=== PATIENT | female | born 1930 | race Caucasian/White ===

== ENCOUNTER 2016-10-04 05:07 | Inpatient (IN) | payer MEDICARE, BC ==
[~2016-10-04 05:07] MED LIST: ADULT LOW DOSE81 MG PO; ANTIVERT25 MG PO; BABY ASPIRIN81 MG; CALCIUM; CALCIUM 600 MG1 EACH PO; CALCIUM600 MG PO; CLARITIN10 MG; DIOVAN320 MG PO; ENABLEX7.5 MG; EQL FISH OIL 1,1 CAP PO; FISH OIL 1,0001 CA1; GLIPIZIDE XL2.5 MG PO; GUAIFENESIN200 MG; MULTIVITAMIN1 CAP; MULTIVITAMIN1 TAB PO; NIACIN400 MG PO; NIACIN500 MG; NIACOR500 MG PO; OMEPRAZOLE20 MG PO; PERFOROMIS20 MCG/2 M; PERFOROMIS20 MCG/2 M INH; PREVALITE POWD231 GM PO; PRILOSEC20 MG; TENEX2 MG PO; VESICARE5 MG PO; ZOCOR20 MG; ZOCOR20 MG PO; ZOFRAN4 MG PO; [UNRECOGNIZED DRUG - REMARK]
[2016-10-04 06:05] LABS: BASO % 0.1 % (0-2); EOS % 0.4 % (0-7); EOSINOPHIL ABSOLUTE COUNT 0.1 tho/cmm (0.0-0.7); HCT-HEMATOCRIT 42.6 % (34.0-49.0); HGB-HEMOGLOBIN 14.1 gm/dl (12.0-15.5); IMMATURE GRANULOCYTES ABSOLUTE 0.04 tho/cmm (0-0.03); IMMATURE GRANULOCYTES PERCENT 0.3 % (0-0.3); LYMPH % 4.7 % (20-45); LYMPH ABSOLUTE COUNT 0.6 tho/cmm (0.8-4.5); MCH (MEAN CORPUSCULAR HGB) 29.9 pg (28.0-32.0); MCHC MEAN CORPUSCULAR HGB CONC 33.1 % (32.0-36.0); MCV (MEAN CELL VOLUME) 90.4 fl (82.0-96.0); MEAN PLATELET VOLUME 9.9 cmc (9.4-12.4); MONO % 5.3 % (0-12); MONOCYTE ABSOLUTE COUNT 0.7 tho/cmm (0.0-1.2); NEUTROPHILS % 89.2 % (40-80); PLATELET COUNT 244 tho/cmm (150-450); RED BLOOD COUNT 4.71 mil/cmm (4.00-5.20); RED CELL DISTRIBUTION WIDTH 13.6 % (12.4-16.4); WHITE BLOOD COUNT 13.5 tho/cmm (4.0-10.0)
[2016-10-04 06:15] LABS: PROTHROMBIN TIME 11.4 SECONDS (9.0-13.6)
[2016-10-04 06:21] LABS: ALB/GLOB RATIO 1.1 (0.8-2.0); ALBUMIN 3.7 g/dl (3.5-5.0); ALKALINE PHOSPHATASE 86 U/L (33-138); ALT/SGPT 28 U/L (12-78); ANION GAP 14 mmol/L (0-20); AST/SGOT 20 U/L (10-40); BILIRUBIN,TOTAL 0.9 mg/dl (0-1.5); BLOOD UREA NITROGEN 18 mg/dl (6-24); CALCIUM 9.2 mg/dl (8.5-10.5); CARBON DIOXIDE-VENOUS 25 mmol/L (22-32); CHLORIDE 105 mmol/l (96-110); CREATININE 0.99 mg/dl (0.50-1.10); GLUCOSE 134 mg/dL (70-110); LIPASE 103 U/L (73-393); MAGNESIUM 1.9 mg/dl (1.8-2.6); SODIUM 140 mmol/L (135-145); eGFR VALUE FOR BLACK 60 mL/Min
[2016-10-04 06:26] LABS: TSH-THYROID STIMULATING HORM. 1.26 uIU/ml (0.40-3.80)
[2016-10-04 06:29] LABS: URINE BILIRUBIN NEGATIVE (NEG); URINE BLOOD MODERATE (NEG); URINE GLUCOSE (UA) NEGATIVE (NEG); URINE KETONE NEGATIVE (NEG); URINE LEUKOCYTE ESTERASE POSITIVE (NEG); URINE NITRITE POSITIVE (NEG); URINE PROTEIN SMALL (NEG)
[2016-10-04 06:38] LABS: URINE APPEARANCE HAZY; URINE COLOR YELLOW
[2016-10-04 06:41] LABS: URINE WBC 0-3 /[HPF] (0-5)
[2016-10-04 06:42] LABS: URINE BACTERIA 4+
[2016-10-04 07:56] LABS: URINE BILIRUBIN NEGATIVE (NEG); URINE BLOOD MODERATE (NEG); URINE GLUCOSE (UA) NEGATIVE (NEG); URINE KETONE NEGATIVE (NEG); URINE LEUKOCYTE ESTERASE POSITIVE (NEG); URINE NITRITE POSITIVE (NEG); URINE PROTEIN NEGATIVE (NEG); URINE SPECIFIC GRAVITY 1.015 (1.003-1.030)
[2016-10-04 08:08] LABS: URINE APPEARANCE HAZY; URINE COLOR YELLOW
[2016-10-04 08:22] LABS: URINE BACTERIA 4+
[2016-10-04] MEDS ORDERED: SINGULAIR10 M1 PO (08:27)
[2016-10-04] MEDS ORDERED: FLONASE ALLERG9.9 ML (08:27)
[2016-10-04] MEDS ORDERED: DEMADEX10 M1 PO (08:43)
[2016-10-04] MEDS ORDERED: OMEPRAZOLE20 M3 PO (08:44)
[2016-10-04] MEDS ORDERED: BYSTOLIC5 M1 PO (08:44)
[2016-10-04] MEDS ORDERED: ZOCOR20 M1 PO (08:44)
[2016-10-04] MEDS ORDERED: GLUCOTROL XL2.5 M1 PO (08:44)
[2016-10-04] MEDS ORDERED: VESICARE5 M1 PO (08:44)
[2016-10-04] MEDS ORDERED: AVAPRO300 M1 PO (08:45)
[2016-10-04] MEDS ORDERED: ASPIRIN EC81 MG PO (08:45)
[2016-10-04] MEDS ORDERED: CALCIUM CARBON600 M2 PO (08:45)
[2016-10-04] MEDS ORDERED: CENTRUM COMPLE1 EAC1 PO (08:45)
[2016-10-04] MEDS ORDERED: PERFOROMIS20 MCG/21 INH (08:46)
[2016-10-04] MEDS ORDERED: PROAIR HFA8.5 GM INH (08:47)
[2016-10-04] MEDS ORDERED: SYMBICORT 160-1 PUFF INH (08:47)
[2016-10-04 12:42] LABS: PROCALCITONIN <0.05 ng/ml (0.05-0.09)
[2016-10-05 06:11] LABS: BASO % 0.2 % (0-2); EOS % 0.5 % (0-7); HCT-HEMATOCRIT 35.2 % (34.0-49.0); HGB-HEMOGLOBIN 11.5 gm/dl (12.0-15.5); IMMATURE GRANULOCYTES ABSOLUTE 0.03 tho/cmm (0-0.03); IMMATURE GRANULOCYTES PERCENT 0.5 % (0-0.3); LYMPH % 16.8 % (20-45); MCH (MEAN CORPUSCULAR HGB) 29.6 pg (28.0-32.0); MCHC MEAN CORPUSCULAR HGB CONC 32.7 % (32.0-36.0); MCV (MEAN CELL VOLUME) 90.5 fl (82.0-96.0); MEAN PLATELET VOLUME 9.3 cmc (9.4-12.4); MONO % 8.5 % (0-12); MONOCYTE ABSOLUTE COUNT 0.5 tho/cmm (0.0-1.2); NEUTROPHIL ABSOLUTE COUNT 4.5 tho/cmm (1.6-8.0); NEUTROPHIL-AUTOMATED 4.5 tho/cmm (1.6-8.0); NEUTROPHILS % 73.5 % (40-80); PLATELET COUNT 179 tho/cmm (150-450); RED BLOOD COUNT 3.89 mil/cmm (4.00-5.20); RED CELL DISTRIBUTION WIDTH 13.9 % (12.4-16.4)
[2016-10-05 06:15] LABS: WHITE BLOOD COUNT 6.1 tho/cmm (4.0-10.0)
[2016-10-05 06:24] LABS: ANION GAP 13 mmol/L (0-20); BLOOD UREA NITROGEN 11 mg/dl (6-24); CALCIUM 7.9 mg/dl (8.5-10.5); CARBON DIOXIDE-VENOUS 23 mmol/L (22-32); CHLORIDE 104 mmol/l (96-110); CREATININE 0.88 mg/dl (0.50-1.10); GLUCOSE 107 mg/dL (70-110); POTASSIUM 3.5 mmol/L (3.7-5.1); SODIUM 136 mmol/L (135-145); eGFR VALUE FOR BLACK 69 mL/Min
[2016-10-06 05:16] LABS: BASO % 0.1 % (0-2); EOS % 1.6 % (0-7); EOSINOPHIL ABSOLUTE COUNT 0.1 tho/cmm (0.0-0.7); HCT-HEMATOCRIT 34.6 % (34.0-49.0); HGB-HEMOGLOBIN 11.1 gm/dl (12.0-15.5); IMMATURE GRANULOCYTES ABSOLUTE 0.03 tho/cmm (0-0.03); IMMATURE GRANULOCYTES PERCENT 0.4 % (0-0.3); LYMPH ABSOLUTE COUNT 1.3 tho/cmm (0.8-4.5); MCH (MEAN CORPUSCULAR HGB) 29.3 pg (28.0-32.0); MCHC MEAN CORPUSCULAR HGB CONC 32.1 % (32.0-36.0); MCV (MEAN CELL VOLUME) 91.3 fl (82.0-96.0); MEAN PLATELET VOLUME 9.8 cmc (9.4-12.4); MONO % 12.2 % (0-12); NEUTROPHIL ABSOLUTE COUNT 5.7 tho/cmm (1.6-8.0); NEUTROPHIL-AUTOMATED 5.7 tho/cmm (1.6-8.0); NEUTROPHILS % 69.7 % (40-80); PLATELET COUNT 168 tho/cmm (150-450); RED BLOOD COUNT 3.79 mil/cmm (4.00-5.20); WHITE BLOOD COUNT 8.1 tho/cmm (4.0-10.0)
[2016-10-06 05:32] LABS: ANION GAP 12 mmol/L (0-20); BLOOD UREA NITROGEN 9 mg/dl (6-24); CALCIUM 8.3 mg/dl (8.5-10.5); CARBON DIOXIDE-VENOUS 23 mmol/L (22-32); CHLORIDE 109 mmol/l (96-110); CREATININE 0.82 mg/dl (0.50-1.10); GLUCOSE 102 mg/dL (70-110); POTASSIUM 3.7 mmol/L (3.7-5.1); SODIUM 140 mmol/L (135-145); eGFR VALUE FOR BLACK 76 mL/Min
[2016-10-07 05:17] LABS: BASO % 0.2 % (0-2); EOS % 0.9 % (0-7); EOSINOPHIL ABSOLUTE COUNT 0.1 tho/cmm (0.0-0.7); HCT-HEMATOCRIT 34.1 % (34.0-49.0); HGB-HEMOGLOBIN 11.2 gm/dl (12.0-15.5); IMMATURE GRANULOCYTES ABSOLUTE 0.04 tho/cmm (0-0.03); IMMATURE GRANULOCYTES PERCENT 0.4 % (0-0.3); LYMPH % 13.6 % (20-45); LYMPH ABSOLUTE COUNT 1.3 tho/cmm (0.8-4.5); MCH (MEAN CORPUSCULAR HGB) 29.4 pg (28.0-32.0); MCHC MEAN CORPUSCULAR HGB CONC 32.8 % (32.0-36.0); MCV (MEAN CELL VOLUME) 89.5 fl (82.0-96.0); MEAN PLATELET VOLUME 9.3 cmc (9.4-12.4); MONO % 12.8 % (0-12); MONOCYTE ABSOLUTE COUNT 1.3 tho/cmm (0.0-1.2); NEUTROPHIL ABSOLUTE COUNT 7.1 tho/cmm (1.6-8.0); NEUTROPHIL-AUTOMATED 7.1 tho/cmm (1.6-8.0); NEUTROPHILS % 72.1 % (40-80); PLATELET COUNT 185 tho/cmm (150-450); RED BLOOD COUNT 3.81 mil/cmm (4.00-5.20); RED CELL DISTRIBUTION WIDTH 13.6 % (12.4-16.4); WHITE BLOOD COUNT 9.8 tho/cmm (4.0-10.0)
[2016-10-07 05:32] LABS: ALB/GLOB RATIO 0.8 (0.8-2.0); ALBUMIN 2.6 g/dl (3.5-5.0); ALKALINE PHOSPHATASE 65 U/L (33-138); ALT/SGPT 21 U/L (12-78); ANION GAP 12 mmol/L (0-20); AST/SGOT 19 U/L (10-40); BILIRUBIN,TOTAL 0.7 mg/dl (0-1.5); BLOOD UREA NITROGEN 7 mg/dl (6-24); CALCIUM 8.3 mg/dl (8.5-10.5); CARBON DIOXIDE-VENOUS 26 mmol/L (22-32); CHLORIDE 105 mmol/l (96-110); GLUCOSE 115 mg/dL (70-110); POTASSIUM 3.5 mmol/L (3.7-5.1); SODIUM 139 mmol/L (135-145); eGFR VALUE FOR BLACK 78 mL/Min
[2016-10-08 05:14] LABS: HGB-HEMOGLOBIN 11.6 gm/dl (12.0-15.5); PLATELET COUNT 227 tho/cmm (150-450)
[2016-10-08] MEDS ORDERED: ELIQUIS5 M1 PO (10:00)
[2016-10-08] MEDS ORDERED: SORINE80 M2 PO (10:03)
[2016-10-08] MEDS ORDERED: KEFLEX250 M2 PO (12:40)
== END 2016-10-08 14:05 | DRG 309 ==
LOC: EDMED 05:07 → EMR2 10:55 → PCUB 13:07
PROVIDERS: Emergency Medicine; Internal Medicine; ADMIT Family Medicine
PROC: 05H533Z Insertion of Infusion Device into Right Subclavian Vein, Percutaneous Approach (ICD-10-PCS; 2016-10-04)
PROC: 5A2204Z Restoration of Cardiac Rhythm, Single (ICD-10-PCS; principal; 2016-10-05)
PROC: B246ZZ4 Ultrasonography of Right and Left Heart, Transesophageal (ICD-10-PCS; 2016-10-05)
DX: I48.1 Persistent atrial fibrillation (principal); A08.39 Other viral enteritis; E87.2 Acidosis; N39.0 Urinary tract infection, site not specified; E11.9 Type 2 diabetes mellitus without complications; B96.20 Unspecified Escherichia coli [E. coli] as the cause of diseases classified elsewhere; I10 Essential (primary) hypertension; J45.909 Unspecified asthma, uncomplicated; E78.5 Hyperlipidemia, unspecified; M19.90 Unspecified osteoarthritis, unspecified site; Z79.82 Long term (current) use of aspirin; Z79.84 Long term (current) use of oral hypoglycemic drugs; Z86.73 Personal history of transient ischemic attack (TIA), and cerebral infarction without residual deficits; R68.84 Jaw pain; Z88.1 Allergy status to other antibiotic agents; Z88.2 Allergy status to sulfonamides; Z88.8 Allergy status to other drugs, medicaments and biological substances; D64.9 Anemia, unspecified
CPT/HCPCS: C1751; C9113; J0696; J1650; J2405; J7030; P9612; Q9967